=== PATIENT | male | born 1970 | race Two or more races ===

== ENCOUNTER 2018-04-04 10:21 | Day surgery (SDC) | payer OTHER ==
[2018-04-04] MEDS ORDERED: LIDOCAINE 4% SOLUTION 50 ML BTL (11:35)
[2018-04-04] MEDS ORDERED: MIDAZOLAM 1 MG/ML 2 ML INJ ×2 (12:21)
[2018-04-04] MEDS ORDERED: FENTAnyl 50 MCG/ML VIAL (12:21)
== END 2018-04-04 14:24 | disposition home or self-care (01) ==
LOC: GIL 10:21
DX: R19.5 Other fecal abnormalities (principal); K21.0 Gastro-esophageal reflux disease with esophagitis; D3A.8 Other benign neuroendocrine tumors; K64.8 Other hemorrhoids; K57.30 Diverticulosis of large intestine without perforation or abscess without bleeding; K29.30 Chronic superficial gastritis without bleeding
CPT/HCPCS: 43239; 88305; 88312; 88313